=== PATIENT | female | born 1960 | race Caucasian/White ===

== ENCOUNTER 2024-04-15 19:56 | Inpatient (IN) | payer MEDICARE, OTHER, SELFPAY ==
[2024-04-15 19:57] VITALS: BP 176/112; PULSE 120; RESP 20; TEMP 36.6; O2SAT 99; BMI 31.8
--- NOTE | 2024-04-15 20:29 | EKG12_ITS ---
Test Reason : TACHYCARDIA Blood Pressure : */* mmHG Vent. Rate : 155 BPM Atrial Rate : * BPM P-R Int : * ms QRS Dur : 72 ms QT Int : 290 ms P-R-T Axes : * 27 15 degrees QTcB Int : 465 ms Critical Test Result: High HR Atrial fibrillation with rapid ventricular response Abnormal ECG Confirmed by Armando Biggs ([id number]), industrial editor ANIKA GONZALEZ ([id number]) on 04/19/2024 10:39:50 AM Referred By: Janusz Del Rio Confirmed By: Armando Biggs
--- NOTE | 2024-04-15 20:38 | RAD_ITS ---
PROCEDURE: Chest radiographs REASON FOR EXAM: Shortness of breath TECHNIQUE: Frontal and lateral views of the chest. COMPARISON: None. FINDINGS: Borderline cardiomegaly. Mediastinal contours are within normal limits. Small bilateral pleural effusions with adjacent patchy basilar airspace opacities. No sizable pneumothorax. RAD/Chest PA and Lateral IMPRESSION: Imaging findings suggestive of fluid overload as above. Superimposed infection not definitively excluded. Reading Location: [facility]
--- NOTE | 2024-04-15 20:43 | ED.RN ---
no old ekg
[2024-04-15 21:00] VITALS: BP 148/116; PULSE 143; PULSE 151; RESP 22; RESP 23; TEMP 36.5; O2SAT 93; O2SAT 95
[2024-04-15 21:07] LABS: Absolute Lymphocyte Count 2.19 X10^3/uL (0.83-4.51); Absolute Neutrophil Count 5.7 X10^3/uL (2.0-7.7); Basophil# 0.08 X10^3/uL; Basophil% 0.9 % (0-1); Eosinophil# 0.19 X10^3/uL; Eosinophils% 2.2 % (0-5); Hematocrit 45.6 % (37-47); Hemoglobin 14.8 g/dL (12.0-15.0); Lymphocyte # 2.19 X10^3/ul (0.83-4.51); Mean Corp Hgb Conc 32.5 g/dL (32-36); Mean Corpuscular Hgb 30.3 pg (27.0-32.0); Mean Corpuscular Volume 93.4 fL (81-99); Mean Platelet Vol. 12.5 fl (6.2-12.0); Monocyte# 0.62 X10^3/uL; Monocyte% 7.1 % (0-10); NRBC Flagged by Analyzer 0 % (0-5); Neutrophil # 5.67 X10^3/uL (2.7-7.7); Neutrophil % 64.6 % (47-70); Platelet Count 236 K/mm3 (150-450); RBC Distribution Width CV 12.6 % (11.6-14.6); RBC Distribution Width SD 43.6 fl (35.1-43.9); Red Blood Count 4.88 M/mm3 (4.2-5.4); White Blood Count 8.8 K/mm3 (4.4-11.0)
[2024-04-15 21:20] LABS: International Normalized Ratio 1.1; Prothrombin Time (Protime)PT. 14.1 SECONDS (11.7-14.9)
[2024-04-15 21:21] LABS: Partial Thromboplast Time 25.3 Seconds (24.1-36.2)
[2024-04-15] MEDS: Metoprolol Tartrate 5 MG/5 ML Vial IV (21:27)
[2024-04-15] MEDS: 0.9% Normal Saline (1000mL) 1,000 ML 999 ML IV (21:27)
--- NOTE | 2024-04-15 21:29 | EX.ED.DYSGE1 ---
HPI History of Present Illness Chief Complaint: Shortness of Breath Narrative Narrative: Patient is a 64-year-old female with past medical history of colon resection few years ago for multiple polyps in her colon but states that her last recent colonoscopy was clean who presents to the emerged part with a chief complaint of shortness of breath and chest heaviness. Patient states that back in February she felt that she had some upper respiratory infectious type symptoms and thought that things would improve. She stopped that she had the same cold that everybody else had. She states that periodically she had been trying to work out and noted that when she would get on the treadmill and it would monitor her heart rate which show in the 180s the patient and her significant other at bedside thought that the machine was broken. She states that given that things are not improving and she does not have a primary care physician again to she would come to the emergency department to be evaluated. Patient denies recent travel history denies any blood clots. Patient denies any alcohol use or drug use. [facility] Home Medications ?Medication ?Instructions ?Recorded ?Last Taken ?Type benzonatate 100 mg capsule 100 mg PO TID PRN PRN cough 04/15/24 Unknown History doxycycline hyclate 100 mg tablet 100 mg PO BID 04/15/24 04/15/24 History estradiol 1 mg tablet (Estrace) 0.5 mg PO DAILY 04/15/24 04/15/24 History estradiol-norethindrone acet 1 1 tab PO DAILY 04/15/24 04/15/24 History mg-0.5 mg tablet (Activella) Allergy/AdvReac Type Severity Reaction Status Date / Time Penicillins Allergy Mild RASH Verified 04/15/24 19:57 Surgical History History of colon resection Social History Smoking Status: Never smoker ROS ROS ED ROS Narrative Constitutional: Denies fevers, chills, headaches, lightness, dizziness Eyes: Denies change in vision double vision blurry vision Cardiovascular: Complains of chest pressure denies palpitations Respiratory: Complaint shortness of breath Abdomen: Denies abdominal pain nausea vomit diarrhea : Denies any urinary symptoms Neurological: Denies numbness, weakness, tingling Musculoskeletal: Denies back pain Skin: Denies any rashes or lesions EXAM Physical Exam Narrative Exam Narrative: General: Patient was lying in bed rest comfortably did not appear to be in acute distress Head: Atraumatic, normocephalic Eyes: PERRL bilaterally, EOMI bilaterally, no conjunctival injection noted Neck: Soft, supple, trachea midline Cardiovascular: Patient had an irregular irregular rhythm with a tachycardic rate Respiratory: Clear to auscultation bilaterally Abdomen: Soft, nondistended, nontender to palpation Extremities: +5/5 strength noted in the bilateral upper and lower extremities, radial pulses +2/4 in the bilateral extremities, no pedal edema on exam Neurological: Patient following commands knew that she was at [facility] year is 2024 Skin: Warm, dry, intact no rashes or lesions noted Const Vital Signs: 04/15/24 19:57 04/15/24 20:11 04/15/24 20:32 Temperature 97.9 F Temperature Source Temporal Pulse Rate 120 H Respiratory Rate 20 H Respiratory Effort Normal Non-Labored Respiratory Depth Normal Respiratory Pattern Normal Blood Pressure 176/112 H Blood Pressure Mean 133 Pulse Ox 99 Oxygen Delivery Method Room Air Room Air Room Air 04/15/24 21:00 04/15/24 21:00 04/15/24 21:30 Temperature 97.7 F L Temperature Source Oral Pulse Rate 151 H 143 H 139 H Respiratory Rate 22 H 23 H 19 H Respiratory Effort Respiratory Depth Respiratory Pattern Blood Pressure 148/116 H 148/116 H 132/98 H Blood Pressure Mean 126 126 109 Pulse Ox 95 93 96 Oxygen Delivery Method Room Air 04/15/24 23:00 Temperature Temperature Source Pulse Rate 121 H Respiratory Rate 23 H Respiratory Effort Respiratory Depth Respiratory Pattern Blood Pressure 126/99 H Blood Pressure Mean 108 Pulse Ox 94 Oxygen Delivery Method MDM MDM MDM Narrative Medical decision making narrative: Patient is a 64-year-old female who presents to the emergency department the chief complaint of shortness of breath, chest heaviness. On the differential diagnose includes but not limited to ACS, pneumonia, upper respiratory infection secondary viral etiology, atrial fibrillation with rapid ventricular response, hyperthyroidism, lecture light abnormality PE.. Once workup is obtained reviewed she will be reevaluated. Patient will be given 30 cc/kg bolus of IV fluids based on ideal body weight as her BMI is greater than 30. Fluids were ordered at 2029. Patient was given 5 mg IV Lopressor. Patient's heart rate remains elevated therefore should be given Cardizem bolus followed by Cardizem drip. Patient's CBC was largely unremarkable no evidence leukocytosis white blood count normal at 8.8, a hemoglobin is 14.8, plate count normal at 236. Patient INR normal at 1.1, PT of 14.1, D-dimer elevated therefore CT angiography chest was added on. Patient sodium was noted be normal 130, potassium of 4.1, creatinine normal at 0.79. Patient AST and ALT were 32 and 41 respectively. Patient's troponin was noted to be 29 with a delta troponin obtained noted to be 29. Patient is EKG reviewed by myself which showed atrial fibrillation with rapid ventricular response with a rate of 155 bpm. Patient's proBNP elevated 2792. Patient TSH elevated to 4.39, free T41.70 And T3 of 3.8. Patient's urinalysis showed negative nitrites 25 leukocyte esterase 10-25 white cells however the 10-25 squamous epithelial cells with 1+ bacteria likely contaminated this was sent for culture. Patient's chest x-ray reviewed by myself and by radiology showed borderline cardiomegaly finding suggestive of volume overload state. Patient CT angiography of chest was reviewed showed no evidence of filling defect to suggest PE findings most suggestive of mild pulmonary edema with small bilateral pleural effusions. Patient was given 40 mg IV Lasix. Patient's case will be discussed with hospitalist for admission for her new onset A-fib with RVR and shortness of breath, however she likely has been in this since February. After discussion with the patient and she states that since Friday starting doxycycline she has had dark stools. States that she has had 3 dark stools since Friday. Did perform rectal exam sending down to the lab will hold off on any anticoagulation at this point time. Discussed case with hospitalist Dr. Cherry who accept patient for admission. Patient was notified as well as significant other bedside they are agreeable this plan. Will still hold off on starting any anticoagulation until the fecal occult test comes back which is pending. Lab Data Labs: Laboratory Results - last 24 hr 04/15/24 04/15/24 04/15/24 20:13 20:55 21:35 WBC 8.8 RBC 4.88 Hgb 14.8 Hct 45.6 MCV 93.4 MCH 30.3 MCHC 32.5 RDW Std Deviation 43.6 RDW Coeff of [place] 12.6 Plt Count 236 MPV 12.5 H Immature Gran % (Auto) 0.200 Neut % (Auto) 64.6 Lymph % (Auto) 25.0 [place] % (Auto) 7.1 Eos % (Auto) 2.2 Baso % (Auto) 0.9 Absolute Neuts (auto) 5.7 Absolute Lymphs (auto) 2.19 Nucleated RBC % 0 PT 14.1 INR 1.1 APTT 25.3 D-Dimer Quant (PE/DVT) 2.16 H* Sodium 138 Potassium 4.1 Chloride Direct 104 Carbon Dioxide 20.3 L Anion Gap 13 BUN 16 Creatinine 0.79 Estim Creat Clear Calc 69.89 Est GFR (MDRD) Non-Af 82 BUN/Creatinine Ratio 20.3 H Glucose 114 H Lactic Acid 1.6 Calcium 9.1 Total Bilirubin 0.46 AST 32 ALT 41 H Alkaline Phosphatase 59 Troponin T High Sens 29 H Troponin T Hi Sens 2 Hr 29 H Troponin T Hi Sens 2Hr Delta 1 NT pro BNP II 2792 H Total Protein 6.5 Albumin 4.1 Globulin 2.5 Albumin/Globulin Ratio 1.6 TSH 4.390 H Free T4 1.70 H Free T3 pg/dL 3.8 Urine Color Yellow Urine Clarity Sl. Cloudy Urine pH 6.0 Ur Specific [place] 1.025 Urine Protein 100 H Urine Glucose (UA) Normal Urine Ketones 5 H Urine Occult Blood 25 H Urine Nitrite Negative Urine Bilirubin Negative Urine Urobilinogen 1 H Ur Leukocyte Esterase 25 H Urine RBC 0-5 SEEN Urine WBC 10-25 SEEN Ur Squamous Epith Cells 10-25 SEEN Calcium Oxalate Crystal 2+ Urine Bacteria 1+ Hyaline Casts 0-5 SEEN Urine Mucus 0 SEEN Radiography Diagnostic Testing: Clinical Impression(s) from Imaging Studies Chest X-Ray 04/15/24 20:38 IMPRESSION: Imaging findings suggestive of fluid overload as above. Superimposed infection not definitively excluded. Reading Location: [facility] Chest CTA 04/15/24 22:10 IMPRESSION: No evidence of filling defect to suggest pulmonary embolism. Findings most suggestive of mild pulmonary edema with small bilateral pleural effusions as above. One or more dose reduction techniques were used (e.g., Automated exposure control, adjustment of the mA and/or kV according to patient size, use of iterative reconstruction technique). Reading Location: [facility] Discharge Plan Triage Chief Complaint: Shortness of Breath ED Provider: Janusz Del Rio Dx/Rx/DC Orders Clinical Impression: Atrial fibrillation with RVR, Pleural effusion, bilateral, Dyspnea on exertion Prescriptions: No Action estradiol-norethindrone acet [Activella] 1-0.5 mg tablet 1 tab PO DAILY benzonatate 100 mg capsule 100 mg PO TID PRN PRN (Reason: cough) doxycycline hyclate 100 mg tablet 100 mg PO BID estradiol [Estrace] 1 mg tablet 0.5 mg PO DAILY Rx Instructions: off 1 week; repeat cycle Primary Care Provider: Kaykay Stallings NP Referrals: Kaykay Stallings NP, [facility] [Primary Care Provider] - Print Language: Slovenian Disposition Disposition: [facility] Care [facility]
[2024-04-15 21:30] VITALS: BP 132/98; PULSE 139; RESP 19; O2SAT 96
[2024-04-15 21:32] LABS: ALB/GLOB Ratio 1.6 RATIO (0.9-2.4); AST(SGOT) 32 U/L (<=31); Alanine Aminotransfer ALT/SGPT 41 U/L (<=34); Albumin, Serum 4.1 g/dL (3.4-4.8); Alkaline Phosphatase 59 U/L (35-104); Anion Gap 13 (5-15); BUN 16 mg/dL (4-19); BUN/Creat Ratio 20.3 RATIO (10-20); Calcium 9.1 mg/dL (7.6-11.0); Carbon Dioxide 20.3 mmol/L (22.0-29.0); Chloride 104 mmol/L (96-108); Creatinine, Serum 0.79 mg/dL (0.70-1.20); EST Glomerular Filtration Rate 82 (>60); Estimated Creatinine Clearance 69.89 ml/min; Globulin 2.5 g/dL (2.2-4.2); Glucose 114 mg/dL (70-99); Potassium 4.1 mmol/L (3.3-5.1); Protein, Total 6.5 g/dL (5.9-8.4); Sodium Level 138 mmol/L (133-145); Total Bilirubin 0.46 mg/dL (0.00-1.30); Troponin T High Sensitivity 29 ng/L (<=14)
[2024-04-15 21:34] LABS: Lactic Acid 1.6 mmol/L (0.0-2.0)
[2024-04-15 21:48] LABS: Mucous, Urine 0 SEEN /hpf (<or=2+)
[2024-04-15 21:52] LABS: D-Dimer Quantitative (DVT/PE) 2.16 FEU/ug/m (0.27-0.49)
[2024-04-15 21:56] LABS: Color, Urine Yellow (Yellow); Glucose, Dipstick Normal (Normal); Ketone-Dipstick 5 mg/dl (Negative); Leukocyte Esterase-Dipstick 25 /ul (Negative); Nitrite-Dipstick Negative (Negative); Occult Blood-Urine 25 /ul (Negative); Protein-Dipstick 100 mg/dl (Negative); Specific Gravity, Urine 1.025 (1.002-1.030); Urine Bilirubin Dipstick Negative (Negative); Urine Clarity Sl. Cloudy (Clear); Urine Urobilinogen 1 mg/dl (Normal)
[2024-04-15 21:59] LABS: Free T3 3.8 pg/mL (2.18-3.98); TROPONIN VARIANCE 2 HR 1; Troponin T High Sens 2 HR 29 ng/L (<=14)
[2024-04-15 22:05] LABS: Pro- Brain NATRIURETIC PEPTIDE 2792 pg/mL (<=900)
[2024-04-15 22:09] LABS: Bacteria 1+ /hpf (None Seen)
--- NOTE | 2024-04-15 22:10 | CT_ITS ---
PROCEDURE: CTA CHEST W/WO CONTRAST REASON FOR EXAM: new AFib, elevated D-dimer TECHNIQUE: CTA imaging of the chest with intravenous contrast. 3D reconstructions. CONTRAST: 98 cc Isovue 370 COMPARISON: None. FINDINGS: No evidence of filling defect to suggest pulmonary embolism. Cardiomegaly with small pericardial effusion. Right greater than left bilateral small posterior layering pleural effusions with associated partial passive collapse at the bases. Patchy areas of lower zone predominant ground-glass opacity within the lower lobes may represent degree of pulmonary edema. The central airways are patent. Thoracic aorta appears within limits. Incidental note of the left vertebral artery appearing to arise directly off the aortic arch, anatomic variant. At least 4 large hepatic cysts within the visualized partially imaged liver, incidental measuring up to 5 cm. Lower cervical and L1-2 spondylosis/discogenic change CT/CTA Chest W/WO Contrast IMPRESSION: No evidence of filling defect to suggest pulmonary embolism. Findings most suggestive of mild pulmonary edema with small bilateral pleural e ffusions as above. One or more dose reduction techniques were used (e.g., Automated exposure contr ol, adjustment of the mA and/or kV according to patient size, use of iterative reconstruction technique). Reading Location: [id number]
[2024-04-15 22:11] LABS: Calcium Oxalate Crystals Ur 2+ /hpf (<or=2+); Squamous Epithelial Cells - UA 10-25 SEEN /hpf (5-10)
[2024-04-15 22:12] LABS: Hyaline Cast 0-5 SEEN /lpf (0-5)
[2024-04-15 22:13] LABS: Red Blood Cells-Urine 0-5 SEEN /hpf (0-5); White Blood Cells 10-25 SEEN /hpf (0-5)
[2024-04-15] MEDS: Furosemide 40 MG/4 ML Vial IV (22:57)
[2024-04-15 23:00] VITALS: BP 126/99; PULSE 121; RESP 23; O2SAT 94
[2024-04-15] MEDS: dilTIAZem 25 MG/5 ML Vial 20 MG IV BOLUS (23:43)
[2024-04-15 23:45] VITALS: PULSE 120; RESP 25; O2SAT 94
[2024-04-15] MEDS: Diltiazem 125 MG in Dextrose 5%-Water (100mL Bag) 100 ML IV (23:45)
[2024-04-16] VITALS (27 sets, daily range): BP systolic 90–145; BP diastolic 68–106; PULSE 63–99; RESP 16–26; TEMP 36.3–36.7; O2SAT 93–99; BMI 32.8
--- NOTE | 2024-04-16 00:09 | PCM.HP.STD ---
[facility] - General General Date of Admission: 04/16/24 Date of Service: 04/16/24 Chief Complaint: SOB and chest Pressure. HPI Narrative ZENOBIA PALM, is a 64 F with a past medical history of obesity; with BMI of 31.8 this admission, history of colon polyps; s/p partial colon resection, history of menopause; on daily Estrace and estradiol-norethindrone, listed allergy to PCN (rash) and recently diagnosed bronchitis; treated with oral doxycycline and benzonatate prn who presents to [place] [facility] complaining of shortness of breath and chest pressure. Ms. Palm reports her symptoms began approximately 7 weeks prior to admission after she developed a viral URI with continued dyspnea on exertion and easy fatigability that has been unrelenting in spite of taking oygh-dom-wwnmmnj medications. She then went to an urgent care because she recently moved to this area and has not set up a relationship with a new PCP with patient given prescription for oral doxycycline which she has taken for the last 3 days without improvement. She admits to increased life-stress due to a major remodeling of her home with the patient and her both living in their basement in their first floor basically a construction zone. She admits that she has been trying to work out periodically and when she was in the gym she would get on the treadmill and her heart rate would show tachycardia at ~180 bpm - but she thought the machine was broken so she did not seek medical attention at that time. She states she has a constant pressure sensation in her chest that is substernal, nonradiating, moderate and is made worse with activity but has not significantly improved with rest. She denies a history of similar previous episodes and has been very healthy overall throughout her life but she did state that her mother had constant problems with palpitations, but she is not sure if she had atrial fibrillation or other specific cardiac disease. She admits to having to sleep sitting up for the past ~7 weeks due to severe shortness of breath that worsen when lying flat with patient stating she has not rested well for a long time and that she is afraid to go to sleep because she does not think she will wake up. She denies a personal history of CHF, atrial fibrillation or other known cardiac disease. She additionally denies associated fever, chills, nausea, vomiting, diarrhea, constipation, abdominal pain, dysuria, hematuria, lower extremity swelling, headache or rash. In the ER she was noted to have a sharply elevated BNP of 2,792 pg/mL present on admission with corresponding radiographic evidence of pulmonary edema consistent with New-onset AE CHF; of uncertain type complicated by New-onset Atrial Fibrillation; with Rapid Ventricular Response of ~150 bpm present on admission with associated Chest Pressure and Dyspnea on Exertion compounded by UA positive for Acute Cystitis; without hematuria along with an elevated D-dimer of 2.16 present on admission with CTA of chest with IV contrast done in ER negative for PE but positive for mild pulmonary edema with small bilateral pleural effusions. She was then admitted to the PCU for ongoing care for a stay that is expected to extend beyond 2 midnights. COUNTS INCLUDE 234 BEDS AT THE [facility] Home Medications ?Medication ?Instructions ?Recorded ?Last Taken ?Type benzonatate 100 mg capsule 100 mg PO TID PRN PRN cough 04/15/24 Unknown History doxycycline hyclate 100 mg tablet 100 mg PO BID 04/15/24 04/15/24 History estradiol 1 mg tablet (Estrace) 0.5 mg PO DAILY 04/15/24 04/15/24 History estradiol-norethindrone acet 1 1 tab PO DAILY 04/15/24 04/15/24 History mg-0.5 mg tablet (Activella) Allergy/AdvReac Type Severity Reaction Status Date / Time Penicillins Allergy Mild RASH Verified 04/15/24 19:57 Surgical History History of colon resection Social History Smoking Status: Never smoker ROS ROS Narrative Review of Systems: Constitutional: Patient denies fever or chills. Eyes: Patient denies changes in vision or discharge from eyes. ENT: Patient denies runny nose, sore throat or ear pain. Resp: Patient admits to shortness of breath but she denies cough. CV: Patient admits to diffuse chest pressure but she denies palpitations. GI: Patient denies abdominal pain, nausea, vomiting or diarrhea. : Patient denies dysuria or hematuria. MSK: Patient denies arthralgias or myalgias. Skin: Patient denies rash, abscess, wounds or jaundice. Psych: Patient denies symptoms of uncontrolled depression or anxiety. Neuro: Patient denies headache, paresthesias or focal neurologic deficits. Allergy: Patient denies lip swelling, tongue swelling or urticaria. Hematology: Patient denies easy bleeding or easy bruisability. Endocrinology: Patient denies polyuria, polydipsia or polyphagia. 14 point review of systems otherwise negative except for positives noted above in HPI. Vital Signs Vital Signs Vital Signs: 04/15/24 19:57 04/15/24 20:11 04/15/24 20:32 Temperature 97.9 F Temperature Source Temporal Pulse Rate 120 H Respiratory Rate 20 H Respiratory Effort Normal Non-Labored Respiratory Depth Normal Respiratory Pattern Normal Blood Pressure 176/112 H Blood Pressure Mean 133 Blood Pressure Source Blood Pressure Position Blood Pressure Location Pulse Ox 99 Oxygen Delivery Method Room Air Room Air Room Air 04/15/24 21:00 04/15/24 21:00 04/15/24 21:30 Temperature 97.7 F L Temperature Source Oral Pulse Rate 151 H 143 H 139 H Respiratory Rate 22 H 23 H 19 H Respiratory Effort Respiratory Depth Respiratory Pattern Blood Pressure 148/116 H 148/116 H 132/98 H Blood Pressure Mean 126 126 109 Blood Pressure Source Blood Pressure Position Blood Pressure Location Pulse Ox 95 93 96 Oxygen Delivery Method Room Air 04/15/24 23:00 04/15/24 23:45 Temperature Temperature Source Pulse Rate 121 H 120 H Respiratory Rate 23 H 25 H Respiratory Effort Respiratory Depth Respiratory Pattern Blood Pressure 126/99 H Blood Pressure Mean 108 Blood Pressure Source Monitor Blood Pressure Position Semi-Fowlers Blood Pressure Location Left Arm Pulse Ox 94 94 Oxygen Delivery Method Room Air Weight Weight: 179 lb 7.3 oz Body Mass Index (BMI) 31.8 Physical Exam Const alert and oriented x3 Constitutional Narrative: Mild distress noted. General Appearance: cooperative HEENT normocephalic, head/scalp atraumatic, hearing grossly normal bilaterally and moist oral mucous membranes Eyes PERRL and EOMs intact bilaterally Neck no lymphadenopathy and supple Resp Resp Narrative: Diminished breath sounds throughout with bibasilar rales. Auscultation: rales Cardio Cardio Narrative: Irregularly irregular at ~120 bpm. GI normal to inspection, nondistended, normoactive bowel sounds, soft to palpation, non-tender and non-distended GI Narrative: Obese. Extremity normal to inspection, full ROM and no clubbing, cyanosis or edema Skin Skin Narrative: Patient has no evidence of rash, abscess, wounds or jaundice. Neuro oriented x3, CN's II-XII intact bilaterally, moves all extremities and no focal motor deficits Sensorium / Orientation: awake, alert, oriented to person, oriented to place and oriented to time Speech: speech normal Psych affect normal Results Medical Records Data Attestation: I reviewed the patient's medical records Lab / Micro Data Attestation: I reviewed the patient's lab results. 04/16/24 02:30 04/16/24 02:30 Labs: Laboratory Results - last 24 hr 04/15/24 20:13: WBC 8.8, RBC 4.88, Hgb 14.8, Hct 45.6, MCV 93.4, MCH 30.3, MCHC 32.5, RDW Std Deviation 43.6, RDW Coeff of Laurel 12.6, Plt Count 236, MPV 12.5 H, Immature Gran % (Auto) 0.200, Neut % (Auto) 64.6, Lymph % (Auto) 25.0, Sherman % (Auto) 7.1, Eos % (Auto) 2.2, Baso % (Auto) 0.9, Absolute Neuts (auto) 5.7, Absolute Lymphs (auto) 2.19, Nucleated RBC % 0, PT 14.1, INR 1.1, APTT 25.3, D-Dimer Quant (PE/DVT) 2.16 H*, Sodium 138, Potassium 4.1, Chloride Direct 104, Carbon Dioxide 20.3 L, Anion Gap 13, BUN 16, Creatinine 0.79, Estim Creat Clear Calc 69.89, Est GFR (MDRD) Non-Af 82, BUN/Creatinine Ratio 20.3 H, Glucose 114 H, Calcium 9.1, Total Bilirubin 0.46, AST 32, ALT 41 H, Alkaline Phosphatase 59, Troponin T High Sens 29 H, Troponin T Hi Sens 2 Hr 29 H, Troponin T Hi Sens 2Hr Delta 1, NT pro BNP II 2792 H, Total Protein 6.5, Albumin 4.1, Globulin 2.5, Albumin/Globulin Ratio 1.6, TSH 4.390 H, Free T4 1.70 H, Free T3 pg/dL 3.8 04/15/24 20:55: Lactic Acid 1.6 04/15/24 21:35: Urine Color Yellow, Urine Clarity Sl. Cloudy, Urine pH 6.0, Ur Specific Broussard 1.025, Urine Protein 100 H, Urine Glucose (UA) Normal, Urine Ketones 5 H, Urine Occult Blood 25 H, Urine Nitrite Negative, Urine Bilirubin Negative, Urine Urobilinogen 1 H, Ur Leukocyte Esterase 25 H, Urine RBC 0-5 SEEN, Urine WBC 10-25 SEEN, Ur Squamous Epith Cells 10-25 SEEN, Calcium Oxalate Crystal 2+, Urine Bacteria 1+, Hyaline Casts 0-5 SEEN, Urine Mucus 0 SEEN Micro: Microbiology 04/15/24 20:55 Mucosa - Nose SARS-CoV-2, Influenza & RSV (PCR) - Final Imaging Radiology Impression Chest X-Ray 04/15/24 20:38 IMPRESSION: Imaging findings suggestive of fluid overload as above. Superimposed infection not definitively excluded. Reading Location: [facility] Chest CTA 04/15/24 22:10 IMPRESSION: No evidence of filling defect to suggest pulmonary embolism. Findings most suggestive of mild pulmonary edema with small bilateral pleural effusions as above. One or more dose reduction techniques were used (e.g., Automated exposure control, adjustment of the mA and/or kV according to patient size, use of iterative reconstruction technique). Reading Location: [id number] Assessment & Plan Assessment/Plan (1) CHF exacerbation: QUALIFIERS: Heart failure type: unspecified Qualified Code(s): I50.9 - Heart failure, unspecified (2) Atrial fibrillation with RVR: (3) Chest pressure: (4) Acute respiratory insufficiency: (5) Acute cystitis without hematuria: (6) Obesity (BMI 30.0-34.9): (7) D-dimer, elevated: (8) Hormone replacement therapy (postmenopausal): PLAN: Plan 1. New-onset AE CHF; of uncertain type evidenced by elevated BNP of 2,792 pg/mL with corresponding radiographic evidence of pulmonary edema - Admit to PCU. Give furosemide IV BID plus supplemental KCl and magnesium. Check echocardiogram to evaluate LVEF. Finally, we will consult [facility] see this patient on rounds in the a.m. for further recommendations with help appreciated in advance. 2. New-onset Atrial Fibrillation; with Rapid Ventricular Response complicating #1 - Continue IV diltiazem begun in the ER and titrate to keep heart rate ~100 bpm. Start full-dose Lovenox for CVA prophylaxis. Transition to oral calcium channel minor when appropriate. 3. Chest Pressure and Dyspnea on Exertion attributable to #1 & #2 - Serialize troponin. Start ECASA plus statin and check Lipid Profile. 4. Acute Cystitis; without hematuria adding to the medical complexity of #1 - #3 - Start Levofloxacin IV and await culture and sensitivity data. Give acetaminophen as needed for [id number] (level 1-5/10) pain or fever. Give morphine IV as needed for severe (level 6-10/10) pain. 5. Obesity; with BMI of 31.8 this admission adding to the burden of disease outlined from #1 - #4 - Weight loss will be recommended. TSH slightly elevated with high FT4 of 1.7 ng/dL and normal FT3 of 3.8 pg/mL noted on admission. This complicates her case and may hamper recovery. 6. Elevated D-dimer of 2.16 present on admission with CTA of chest with IV contrast negative for PE and no lower extremity edema or pain noted on admission - Noted. We will check bilateral LE Doppler to evaluate for DVT to make certain no suspicion is admittedly low. Hold postmenopausal HRT as risks outweigh any potential benefits at this time. 7. Recently diagnosed bronchitis; treated with oral doxycycline - Noted with patient suspected to have heart failure rather than bronchitis. 8. History of colon polyps; s/p partial colon resection - Noted with last colonoscopy reportedly negative for recurrence. 9. Listed allergy to PCN (rash) - Noted. We will avoid this class of agents. 10. DVT prophylaxis - Patient on full-dose Lovenox for #2. Total time: Approximately (but not less than) 75 minutes.
--- NOTE | 2024-04-16 01:47 | VDLE_ITS ---
Reason For Study Reason For Study: Elevated D-Dimer RIGHT LEFT GSV is normal. GSV is normal. CFV is compressible, spontaneous, phasic, competent CFV is compressible, spontaneous, phasic, competent, and demonstrates normal augmentation. and demonstrates normal augmentation. FV is compressible, spontaneous, phasic, competent FV is compressible, spontaneous, phasic, competent and demonstrates normal augmentation. and demonstrates normal augmentation. POP V is compressible, spontaneous, phasic, competent POP V is compressible, spontaneous, phasic, competent and demonstrates normal augmentation. and demonstrates normal augmentation. T/P Trunk is compressible. T/P Trunk is compressible. PTV is compressible. PTV is compressible. RT PerV is compressible. LT PerV is compressible. Rt SoleusV is DILATED and NON COMPRESSIBLE consistent with acute DVT. Procedure This is a venous duplex using B-mode, color flow and spectral Doppler. Exam performed portable in patient room. A preliminary report was called and/or faxed to [facility]. VL/Venous Duplex US - Laith Extrem Interpretation Summary Acute deep vein thrombosis is noted in the right soleus vein. Deep veins of the left lower extremity are patent and compressible segmentally. There is no evidence of left lower extremity deep vein thrombosis. The bilateral great saphenous veins appear pemberton nt and compressible segmentally. Ordering Physician: Wallace Gutierrez Referring Physician: Kaykay Stallings Performed By: Sayda Franklin, ISAELCS, RVT
[2024-04-16 02:45] LABS: Absolute Lymphocyte Count 1.82 X10^3/uL (0.83-4.51); Absolute Neutrophil Count 6.2 X10^3/uL (2.0-7.7); Basophil# 0.07 X10^3/uL; Basophil% 0.8 % (0-1); Eosinophil# 0.07 X10^3/uL; Eosinophils% 0.8 % (0-5); Hematocrit 45.4 % (37-47); Hemoglobin 14.9 g/dL (12.0-15.0); Lymphocyte # 1.82 X10^3/ul (0.83-4.51); Mean Corp Hgb Conc 32.8 g/dL (32-36); Mean Corpuscular Volume 94.6 fL (81-99); Mean Platelet Vol. 11.8 fl (6.2-12.0); Monocyte# 0.45 X10^3/uL; Monocyte% 5.2 % (0-10); NRBC Flagged by Analyzer 0 % (0-5); Neutrophil # 6.23 X10^3/uL (2.7-7.7); Neutrophil % 71.7 % (47-70); Platelet Count 218 K/mm3 (150-450); RBC Distribution Width CV 12.6 % (11.6-14.6); RBC Distribution Width SD 43.7 fl (35.1-43.9); White Blood Count 8.7 K/mm3 (4.4-11.0)
[2024-04-16] MEDS: Enoxaparin 80 MG/0.8 ML Syringe SC (02:45)
[2024-04-16] MEDS: Atorvastatin Calcium 20 MG Tablet PO ×2 (02:45→21:25)
[2024-04-16] MEDS: Aspirin E.C. 81 MG Tablet PO (02:45)
[2024-04-16] MEDS: levoFLOXacin IV 750 MG/150 ML BAG 100 MG IV ×2 (02:46→21:26)
[2024-04-16 03:25] LABS: Magnesium 1.9 mg/dL (1.5-2.2)
[2024-04-16 03:27] LABS: ALB/GLOB Ratio 1.5 RATIO (0.9-2.4); AST(SGOT) 37 U/L (<=31); Alanine Aminotransfer ALT/SGPT 45 U/L (<=34); Alkaline Phosphatase 60 U/L (35-104); Anion Gap 14 (5-15); BUN 14 mg/dL (4-19); BUN/Creat Ratio 18.6 RATIO (10-20); Carbon Dioxide 21.8 mmol/L (22.0-29.0); Chloride 103 mmol/L (96-108); Cholesterol 147 mg/dL (<=200); Creatinine, Serum 0.74 mg/dL (0.70-1.20); EST Glomerular Filtration Rate 89 (>60); Estimated Creatinine Clearance 71.02 ml/min; Globulin 2.6 g/dL (2.2-4.2); Glucose 110 mg/dL (70-99); High Density Lipoprotein 44 mg/dL; Low Density Lipoprotein Calc. 88 mg/dL; Potassium 3.9 mmol/L (3.3-5.1); Protein, Total 6.6 g/dL (5.9-8.4); Sodium Level 139 mmol/L (133-145); Total Bilirubin 0.63 mg/dL (0.00-1.30); Triglycerides 74 mg/dL; Very Low Density Lipoprotein 15 mg/dL (5-40); cholesterol:hdl ratio screen 3.33
[2024-04-16 03:43] LABS: Phosphorus 3.6 mg/dL (2.7-4.5); Pro- Brain NATRIURETIC PEPTIDE 2309 pg/mL (<=900)
[2024-04-16] MEDS: Acetaminophen 325 MG Tablet 650 MG PO (07:43)
[2024-04-16] MEDS: Potassium Chloride Oral Tablet 20 MEQ PO (07:46)
[2024-04-16] MEDS: Ascorbic Acid 500 MG Tablet 1000 MG PO ×2 (07:46→17:11)
--- NOTE | 2024-04-16 08:36 | PCM.PN.HOSP ---
Reason for Visit Reason for Visit: Shortness of breath/palpitations Subjective Subjective Patient states she is feeling much better today. Breathing is much better. Chest pain has resolved. Heart rates are improved. We discussed A-fib and patient voiced understanding. Objective Data Objective Data Vital Signs: Vital Signs Temp Pulse Resp BP Pulse Ox O2 Del Method 97.6 F L 97 26 H 121/80 H 93 Room Air 04/16/24 01:38 04/16/24 07:52 04/16/24 01:38 04/16/24 07:52 04/16/24 01:38 04/16/24 08:18 Oxygen Delivery Method Room Air Weight: 84 kg Body Mass Index (BMI) 32.8 Intake & Output: Intake and Output for Last 24 Hours 04/14/24 04/15/24 04/16/24 23:59 23:59 23:59 Intake Total 1000 / 1000 421.59 / 421.59 Output Total 800 / 800 Balance 1000 / 1000 -378.41 / -378.41 Lab / Micro Data 04/16/24 02:30 04/16/24 02:30 Labs: Laboratory Results - last 24 hr 04/15/24 20:13: WBC 8.8, RBC 4.88, Hgb 14.8, Hct 45.6, MCV 93.4, MCH 30.3, MCHC 32.5, RDW Std Deviation 43.6, RDW Coeff of Laurel 12.6, Plt Count 236, MPV 12.5 H, Immature Gran % (Auto) 0.200, Neut % (Auto) 64.6, Lymph % (Auto) 25.0, Caroline % (Auto) 7.1, Eos % (Auto) 2.2, Baso % (Auto) 0.9, Absolute Neuts (auto) 5.7, Absolute Lymphs (auto) 2.19, Nucleated RBC % 0, PT 14.1, INR 1.1, APTT 25.3, D-Dimer Quant (PE/DVT) 2.16 H*, Sodium 138, Potassium 4.1, Chloride Direct 104, Carbon Dioxide 20.3 L, Anion Gap 13, BUN 16, Creatinine 0.79, Estim Creat Clear Calc 69.89, Est GFR (MDRD) Non-Af 82, BUN/Creatinine Ratio 20.3 H, Glucose 114 H, Calcium 9.1, Total Bilirubin 0.46, AST 32, ALT 41 H, Alkaline Phosphatase 59, Troponin T High Sens 29 H, Troponin T Hi Sens 2 Hr 29 H, Troponin T Hi Sens 2Hr Delta 1, NT pro BNP II 2792 H, Total Protein 6.5, Albumin 4.1, Globulin 2.5, Albumin/Globulin Ratio 1.6, TSH 4.390 H, Free T4 1.70 H, Free T3 pg/dL 3.8 04/15/24 20:55: Lactic Acid 1.6 04/15/24 21:35: Urine Color Yellow, Urine Clarity Sl. Cloudy, Urine pH 6.0, Ur Specific Buford 1.025, Urine Protein 100 H, Urine Glucose (UA) Normal, Urine Ketones 5 H, Urine Occult Blood 25 H, Urine Nitrite Negative, Urine Bilirubin Negative, Urine Urobilinogen 1 H, Ur Leukocyte Esterase 25 H, Urine RBC 0-5 SEEN, Urine WBC 10-25 SEEN, Ur Squamous Epith Cells 10-25 SEEN, Calcium Oxalate Crystal 2+, Urine Bacteria 1+, Hyaline Casts 0-5 SEEN, Urine Mucus 0 SEEN 04/16/24 02:30: WBC 8.7, RBC 4.80, Hgb 14.9, Hct 45.4, MCV 94.6, MCH 31.0, MCHC 32.8, RDW Std Deviation 43.7, RDW Coeff of Laurel 12.6, Plt Count 218, MPV 11.8, Immature Gran % (Auto) 0.500, Neut % (Auto) 71.7 H, Lymph % (Auto) 21.0, Caroline % (Auto) 5.2, Eos % (Auto) 0.8, Baso % (Auto) 0.8, Absolute Neuts (auto) 6.2, Absolute Lymphs (auto) 1.82, Nucleated RBC % 0, Sodium 139, Potassium 3.9, Chloride Direct 103, Carbon Dioxide 21.8 L, Anion Gap 14, BUN 14, Creatinine 0.74, Estim Creat Clear Calc 71.02, Est GFR (MDRD) Non-Af 89, BUN/Creatinine Ratio 18.6, Glucose 110 H, Calcium 9.0, Phosphorus 3.6, Magnesium 1.9, Total Bilirubin 0.63, AST 37 H, ALT 45 H, Alkaline Phosphatase 60, B-Natriuretic Peptide Cancelled, NT pro BNP II 2309 H, Total Protein 6.6, Albumin 4.0, Globulin 2.6, Albumin/Globulin Ratio 1.5, Triglycerides 74, Cholesterol 147, VLDL Cholesterol 15, HDL Cholesterol 44, Cholesterol/HDL Ratio 3.33 Micro: Microbiology 04/15/24 23:55 Stool Stool Occult Blood ([facility]) - Final 04/15/24 20:55 Mucosa - Nose SARS-CoV-2, Influenza & RSV (PCR) - Final Radiography Diagnostic Testing: Radiology Impression Chest X-Ray 04/15/24 20:38 IMPRESSION: Imaging findings suggestive of fluid overload as above. Superimposed infection not definitively excluded. Reading Location: [facility] Chest CTA 04/15/24 22:10 IMPRESSION: No evidence of filling defect to suggest pulmonary embolism. Findings most suggestive of mild pulmonary edema with small bilateral pleural effusions as above. One or more dose reduction techniques were used (e.g., Automated exposure control, adjustment of the mA and/or kV according to patient size, use of iterative reconstruction technique). Reading Location: [facility] Physical Exam Const alert, oriented x3, no apparent distress, healthy appearing and well nourished; Negative for average body habitus Constitutional Narrative: Obese, upper middle-aged, white female, sitting up in bed, appears comfortable, watching television, nontoxic-appearing HEENT head/scalp atraumatic and moist oral mucous membranes HEENT Narrative: Mallampati 3, no thrush Resp normal respiratory effort, no retractions and no use of accessory muscles Resp Narrative: Scattered crackles at bases bilaterally Auscultation: crackles; Negative for rhonchi or wheezes Cardio regular rate, S1 normal heart sound, S2 normal heart sound, no murmurs, no rub, no gallops and no clicks Cardio Narrative: Irregular irregular rhythm GI normal to inspection, nondistended, normoactive bowel sounds, soft to palpation and non-tender Extremity no clubbing, cyanosis or edema Extremity Narrative: Pedal pulses are 2+ Neuro oriented x3, moves all extremities and no focal motor deficits Speech: speech normal Psych affect normal Psych Narrative: Very pleasant, interacts appropriately Assessment & Plan Assessment/Plan (1) Dyspnea on exertion: (2) CHF exacerbation: QUALIFIERS: Heart failure type: unspecified Qualified Code(s): I50.9 - Heart failure, unspecified (3) Atrial fibrillation with RVR: (4) DVT (deep venous thrombosis): PLAN: Plan New onset A-fib with RVR -Rate is now controlled -Cardizem discontinued -Start metoprolol 50 mg p.o. twice daily -Discontinue Lovenox and starts Eliquis -Echocardiogram is pending -TSH was slightly elevated but likely euthyroid sick Lower extremity DVT -On anticoagulation for A-fib but will increase dose to 10 mg p.o. twice daily x 7 days and then transition back to 5 mg p.o. twice daily Acute exacerbation of CHF -Type unknown -Likely related to A-fib with RVR -Responding to diuretics and clinically much improved -Continue to monitor Chest pain -Likely related to the above Abnormal UA -Continue antibiotics as ordered -Follow cultures Elevated D-dimer -CT of the chest was negative -Positive DVT in lower extremity below the knee Obesity -Recommend weight loss -Complicates treatment, prognosis, outcomes Use of estrogen replacement therapy -Will continue for now as patient is now going to be anticoagulated DVT prophylaxis -Full anticoagulation as noted above CODE STATUS -full code Charges/Coding Visit Charges Inpatient E&M: 84849 Subs Hosp L2
[2024-04-16] MEDS: Metoprolol Tartrate 50 MG Tablet PO ×2 (08:59→21:26)
[2024-04-16] MEDS: Furosemide 40 MG/4 ML Vial IV ×2 (10:03→17:11)
[2024-04-16] MEDS: Lactobacillis Acidophilus 1 CAP PO ×4 (10:03→21:23)
[2024-04-16] MEDS: 0.9% Saline Lock 10 ML Syringe IV ×3 (10:04→17:12)
[2024-04-16] MEDS: Magnesium Chloride 64 MG Delay Rel.Tablet 128 MG PO ×2 (10:04→21:25)
[2024-04-16] MEDS: Cholecalciferol (Vit D3) 125 MCG CAPSULE (5,000 UNITS) PO (10:05)
[2024-04-16] MEDS: APIXABAN 5 MG TABLET PO (10:11)
--- NOTE | 2024-04-16 12:10 | CASEMGMT ---
LEXIE PARRA Assessment: Face to Face with pt for initial transition planning/care coordination assessment. RN FIDEL introduced self and role at [facility], pt voices understanding and consents to assessment. Pt is A&O x4 and answers all questions appropriately at this time. Pt sitting up in bed in no distress. Care providers, pharmacy, and demographics verified/updated. Strata: 1 Admitting Dx: AE CHF, A-FIB with RVR, Chest pressure, SOB PCP: Haylie Specialists: [facility] Preferred Pharmacy: [facility] Insurance: [facility], MMO Prescription Benefit: yes LNOK: , Ken Living Arrangements: Pt lives with in a 3 level home with 3 steps to enter. ADLs:Pt states I at baseline with ADLs and IADLs. Transportation: Pt drives self and denies concerns with transportation. DME: Denies HHC/SNF: Denies Hx of. Pt states no concerns with going home at time of dc. Pt states no further concerns/needs. CM to follow. Advised pt to ask CM if any further question/concerns/needs arise, voices understanding. Pt Goal: Home Plan: Home with family support. Follow for safe DC. Mis OWEN CM
[2024-04-16] MEDS: Ondansetron 4 MG/2 ML Vial IV (13:04)
--- NOTE | 2024-04-16 14:12 | CHAPLAIN ---
Type of Pastoral Visit _x__ Initial Visit ___ Follow-up Visit ___ On-call Visit ___ General Patient Visit ___ Spiritual Assessment ___ Family Conference ___ Bereavement ___ Rapid Response ___ Code Blue ___ Other (describe below) Pastoral Care Referral From _x__ Patient ___ Family ___ Nurse ___ Physician ___ Second Mate ___ Wire Brusher ___ Other (describe below) Sacrament/Intervention _x__ Active listening ___ Anointing ___ Latter Day ___ Bereavement ___ Communion ___ Erika exploration ___ ___ Life review ___ Prayer ___ Reconciliation ___ Sacrament of Sick ___ Supportive presence ___ Wedding ___ Other (describe below) Pastoral Comments patient is pleasant and states that all is much better now than when I came in; pt denies any further needs; pt declines help so the visit was short and ended
--- NOTE | 2024-04-16 15:42 | CASEMGMT ---
LEXIE PARRA noted pt started on Eliquis, provided pt with Eliquis savings card. Anticipate pt will be DC'd over the weekend.
--- NOTE | 2024-04-16 18:30 | ECHOD_ITS ---
Reason For Study Reason For Study: AFIB Procedure This was a 2D Doppler, Color Flow transthoracic echocardiogram. Exam performed portable in patient room. Left Ventricle Normal LV size. The estimated ejection fraction is 55 %. Unable to assess diastolic dysfunction. No regional wall motion abnormalities noted. Right Ventricle Normal RV size. Normal systolic function. Atria There is mild biatrial dilatation. No doppler evidence for ASD. Mitral Valve There is no mitral valve stenosis. Trivial mitral valve insufficiency. Tricuspid Valve There is no tricuspid stenosis. Mild eccentric tricuspid valve insufficiency. Pulmonary artery systolic pressure is 30 mmHg. Aortic Valve Trisinus/trileaflet aortic valve. There is no aortic stenosis. No aortic valve insufficiency. Pulmonic Valve There is no pulmonic valvular stenosis. Trivial pulmonic valve insufficiency. Great Vessels Normal sized aortic root. Pericardium/Pleural Small (<1.0 cm) pericardial effusion. MMode/2D Measurements & Calculations LVIDd: 4.0 cm IVSd: 1.4 cm LVOT diam: 2.0 cm LVIDs: 3.4 cm LVPWd: 1.2 cm LVOT area: 3.1 cm2 FS: 13.5 % Ao root diam: 2.7 cm LAV(MOD-bp): 62.7 ml LVAd ap4: 22.8 cm2 LAV(MOD-bp) Indexed: 33.5 ml/m2 LVLd ap4: 7.7 cm LAV(MOD-sp2): 70.2 ml EDV(MOD-sp4): 56.8 ml LAV(MOD-sp4): 57.0 ml EDV(sp4-el): 57.2 ml LVAs ap4: 16.5 cm2 LVLs ap4: 7.2 cm ESV(MOD-sp4): 32.9 ml ESV(sp4-el): 32.2 ml EF(MOD-sp4): 42.1 % EF(sp4-el): 43.8 % SV(MOD-sp4): 23.9 ml SV(sp4-el): 25.0 ml LA A4 area: 20.5 cm2 SI(MOD-sp4): 12.8 ml/m2 LA dimension(2D): 4.3 cm RA A4 area: 17.2 cm2 Doppler Measurements & Calculations MV E max lis: 103.1 cm/sec Ao V2 max: 87.2 cm/sec LV V1 max: 73.9 cm/sec Ao max P.0 mmHg LV V1 max P.2 mmHg Ao V2 mean: 65.4 cm/sec LV V1 mean P.2 mmHg Ao mean P.9 mmHg LV V1 mean: 50.3 cm/sec Ao V2 VTI: 15.0 cm LV V1 VTI: 13.1 cm AV (velocity ratio): 0.87 JENNIFER(I,D): 2.7 cm2 JENNIFER(V,D): 2.6 cm2 SV(LVOT): 40.8 ml PA V2 max: 56.6 cm/sec PI end-d lis: 112.7 cm/sec PA V2 mean: 45.1 cm/sec TR max lis: 222.2 cm/sec TR max P.7 mmHg ECHO/Echo Complete Interpretation Summary The estimated ejection fraction is 55 %. There is mild biatrial dilatation. Trivial mitral valve insufficiency. Small (<1.0 cm) pericardial effusion. Ordering Physician: Zahra Trivedi Referring Physician: Janusz Del Rio Performed By: Minerva Mendoza RCS
[2024-04-16] MEDS: APIXABAN 5 MG TABLET 10 MG PO (21:23)
[2024-04-17 03:00] VITALS: BP 119/93; PULSE 89; RESP 14; TEMP 36.6; O2SAT 99
[2024-04-17 06:25] LABS: Absolute Lymphocyte Count 2.27 X10^3/uL (0.83-4.51); Absolute Neutrophil Count 4.2 X10^3/uL (2.0-7.7); Basophil# 0.07 X10^3/uL; Basophil% 0.9 % (0-1); Eosinophil# 0.25 X10^3/uL; Eosinophils% 3.4 % (0-5); Hematocrit 41.5 % (37-47); Hemoglobin 13.7 g/dL (12.0-15.0); Lymphocyte # 2.27 X10^3/ul (0.83-4.51); Lymphocyte % 30.4 % (19-41); Mean Corpuscular Hgb 31.1 pg (27.0-32.0); Mean Corpuscular Volume 94.1 fL (81-99); Mean Platelet Vol. 11.8 fl (6.2-12.0); Monocyte# 0.62 X10^3/uL; Monocyte% 8.3 % (0-10); NRBC Flagged by Analyzer 0 % (0-5); Neutrophil # 4.23 X10^3/uL (2.7-7.7); Neutrophil % 56.7 % (47-70); Platelet Count 198 K/mm3 (150-450); RBC Distribution Width CV 12.6 % (11.6-14.6); RBC Distribution Width SD 43.5 fl (35.1-43.9); Red Blood Count 4.41 M/mm3 (4.2-5.4); White Blood Count 7.5 K/mm3 (4.4-11.0)
[2024-04-17 07:05] LABS: Anion Gap 10 (5-15); BUN 16 mg/dL (4-19); BUN/Creat Ratio 17.5 RATIO (10-20); Calcium 9.1 mg/dL (7.6-11.0); Chloride 104 mmol/L (96-108); Creatinine, Serum 0.92 mg/dL (0.70-1.20); EST Glomerular Filtration Rate 69 (>60); Estimated Creatinine Clearance 61.76 ml/min; Glucose 83 mg/dL (70-99); Magnesium 2.2 mg/dL (1.5-2.2); Phosphorus 3.6 mg/dL (2.7-4.5); Potassium 4.5 mmol/L (3.3-5.1); Sodium Level 140 mmol/L (133-145)
[2024-04-17 08:52] VITALS: O2SAT 96
[2024-04-17] MEDS: Ascorbic Acid 500 MG Tablet 1000 MG PO (08:58)
[2024-04-17] MEDS: Magnesium Chloride 64 MG Delay Rel.Tablet 128 MG PO (08:58)
[2024-04-17] MEDS: Aspirin 81 MG TAB.CHEW PO (08:58)
[2024-04-17] MEDS: Lactobacillis Acidophilus 1 CAP PO (08:58)
[2024-04-17] MEDS: Cholecalciferol (Vit D3) 125 MCG CAPSULE (5,000 UNITS) PO (08:59)
[2024-04-17] MEDS: Furosemide 40 MG/4 ML Vial IV (08:59)
[2024-04-17] MEDS: APIXABAN 5 MG TABLET 10 MG PO (08:59)
[2024-04-17 09:00] VITALS: BP 113/87; PULSE 89; RESP 18; TEMP 36.7; O2SAT 95
[2024-04-17 09:02] VITALS: BP 113/87; PULSE 89
[2024-04-17] MEDS: 0.9% Saline Lock 10 ML Syringe IV (09:02)
[2024-04-17] MEDS: Metoprolol Tartrate 50 MG Tablet PO (09:02)
--- NOTE | 2024-04-17 11:23 | DS.PCM_ITS ---
Providers Date of Admission: 04/16/24 Date of Discharge: 04/17/24 Primary Care Physician: VAIBHAV Dukes Reason For Visit: AE CHF, A-FIB; WITH RVR, CHEST PRESSURE, SOB Diagnosis Discharge Diagnosis (1) Dyspnea on exertion: Status: Acute Code(s): R06.09 - Other forms of dyspnea (2) CHF exacerbation: Status: Chronic Code(s): I50.9 - Heart failure, unspecified Qualifiers: Heart failure type: unspecified Qualified Code(s): I50.9 - Heart failure, unspecified (3) Atrial fibrillation with RVR: Status: Acute Code(s): I48.91 - Unspecified atrial fibrillation (4) DVT (deep venous thrombosis): Status: Acute Code(s): I82.409 - Acute embolism and thrombosis of unspecified deep veins of unspecified lower extremity Medications at Discharge Home Medications benzonatate 100 mg capsule 100 mg PO TID PRN PRN cough 04/15/24 doxycycline hyclate 100 mg tablet 100 mg PO BID 04/15/24 estradiol 1 mg tablet (Estrace) 0.5 mg PO DAILY 04/15/24 estradiol-norethindrone acet 1 mg-0.5 mg tablet (Activella) 1 tab PO DAILY 04/15/24 apixaban 5 mg (74 tabs) tablets in a dose pack ([employer] DVT-PE Treat 30D Start) See Rx Instructions PO .COMPLEX #74 tabs 04/17/24 metoprolol tartrate 50 mg tablet 50 mg PO BID #60 tabs 04/17/24 Hospital Course Procedures 2-D Echocardiogram, EKG and - (CTA chest/lower extremity Dopplers/chest x-ray) Summary of Care Provided Minutes Spent on Discharge: 39 Hospital Course: Mrs. Palm is a 64-year-old white female who presents emergency department at [facility] on 04/16/2024 with a chief complaint of shortness of breath and chest pressure. Patient had not had anything like this previously she is on daily estrogen supplementation at home and had been recently diagnosed with upper respiratory tract infection and placed on doxycycline. Her symptoms started about 7 weeks prior to admission at the time she developed her initial viral URI but she had continued dyspnea on exertion and easy fatigability. She went to an urgent care locally as she had recently moved to the [facility] and has not yet established with a primary care physician. At that time, she was prescribed doxycycline and she had taken 3 days prior to presentation. She did indicate her life stressors have been higher and was concerned that they may be contributing. She has been working out and been noting that her heart rates have been high intermittently while she has been on the treadmill, as high as 170-180. The chest symptoms she was experiencing were nonradiating, substernal and moderate that were made worse with activity but not improved with rest either. She does have a family history of atrial fibrillation in her sister and her mother. She also complained of some lower extremity edema. Vital signs on presentation showed a temperature of 97.9, heart rate 120, respiratory rate 20, blood pressure was 176/112 pulse ox was 99% on room air. CBC on presentation was unremarkable. Coags were normal. D-dimer is elevated at 2.16. Chemistry panel was unremarkable. Lactic acid was normal. LFTs were slightly off with a mildly elevated ALT at 41. Troponins were 29 x 2 and BNP was elevated at 2792. EKG was done and showed A-fib with RVR. Chest x-ray was unremarkable for any acute findings. Given the elevated D-dimer a CTA of her chest was performed and was unremarkable. She was admitted to the medical floor placed on a Cardizem drip and subcu Lovenox. Echocardiogram was ordered. TSH was within normal limits. She was placed on some Lasix which very quickly improved her respiratory status and decreased her lower extremity edema. I highly suspect her heart failure was related to her A-fib with RVR. Echocardiogram was performed and showed an EF of 55% with no regional wall motion abnormalities, right ventricular systolic pressure of 30 mmHg with mild eccentric tricuspid valve insufficiency and no other valvular abnormalities noted and a small less than 1 cm pericardial effusion. We did not discharge her on Lasix. She was transitioned off Cardizem onto metoprolol 50 mg p.o. twice daily and remained in A-fib but rate was controlled. A lower extremity duplex was ordered and she did have a right lower extremity below the knee DVT. This could be managed with serial imaging however given the fact that she needed anticoagulation anyway, we went ahead and treated her with 10 mg p.o. twice daily x 7 days then transition to 5 mg twice daily. I have asked that she follow-up with cardiology in the next month and we gave her resources to establish with a primary care physician locally. She is on estrogen replacement therapy which predisposes her to DVTs however being anticoagulated we did discuss this and she will continue for now. Discharge diagnoses: New onset A-fib with RVR Upper respiratory tract infection Right soleal DVT Acute exacerbation of CHF and early to new onset A-fib with RVR Chest pain Abnormal UA -Culture negative Obesity Chronic estrogen replacement therapy Physical Exam Const alert, oriented x3, no apparent distress, healthy appearing and well nourished; Negative for average body habitus Constitutional Narrative: Obese, upper middle-aged, white female, sitting up in bed, appears comfortable, watching television, nontoxic-appearing General Appearance: cooperative, comfortable, well kempt and well developed Exam Limitations: no limitations Nutritional Appearance: obese HEENT normocephalic, head/scalp atraumatic, hearing grossly normal bilaterally and moist oral mucous membranes HEENT Narrative: Mallampati 2, no thrush Eyes EOMs intact bilaterally Eyes Narrative: No scleral icterus Neck supple Neck Narrative: Trachea midline Resp normal respiratory effort, no retractions, no use of accessory muscles and clear to auscultation bilaterally Auscultation: Negative for crackles, rales, rhonchi or wheezes Cardio regular rate, S1 normal heart sound, S2 normal heart sound, no murmurs, no rub, no gallops and no clicks Cardio Narrative: Irregular irregular rhythm with good rate control GI normal to inspection, nondistended, normoactive bowel sounds, soft to palpation and non-tender GI Narrative: Obese. Extremity no clubbing, cyanosis or edema Extremity Narrative: Pedal pulses are 2+ Skin skin turgor normal and no jaundice Neuro oriented x3, moves all extremities and no focal motor deficits Speech: speech normal Psych affect normal Psych Narrative: Very pleasant, interacts appropriately Weight / BMI Weight Weight: 84 kg Body Mass Index (BMI) 32.8 ABG / Lab / Microbiology Data 04/17/24 05:47 04/17/24 05:47 Laboratory: Laboratory Results - last 24 hr 04/17/24 05:47: WBC 7.5, RBC 4.41, Hgb 13.7, Hct 41.5, MCV 94.1, MCH 31.1, MCHC 33.0, RDW Std Deviation 43.5, RDW Coeff of [place] 12.6, Plt Count 198, MPV 11.8, Immature Gran % (Auto) 0.300, Neut % (Auto) 56.7, Lymph % (Auto) 30.4, [place] % (Auto) 8.3, Eos % (Auto) 3.4, Baso % (Auto) 0.9, Absolute Neuts (auto) 4.2, Absolute Lymphs (auto) 2.27, Nucleated RBC % 0, Sodium 140, Potassium 4.5, Chloride Direct 104, Carbon Dioxide 26.0, Anion Gap 10, BUN 16, Creatinine 0.92, Estim Creat Clear Calc 61.76, Est GFR (MDRD) Non-Af 69, BUN/Creatinine Ratio 17.5, Glucose 83, Calcium 9.1, Phosphorus 3.6, Magnesium 2.2 Microbiology: Microbiology 04/15/24 21:35 Urine, Clean Catch Urine Culture - Preliminary Culture exhibits no growth. 04/15/24 23:55 Stool Stool Occult Blood (CHANCE) - Final 04/15/24 20:55 Mucosa - Nose SARS-CoV-2, Influenza & RSV (PCR) - Final Radiography Diagnostic Testing: Radiology Impression Echocardiogram 04/16/24 18:30 Interpretation Summary The estimated ejection fraction is 55 %. There is mild biatrial dilatation. Trivial mitral valve insufficiency. Small (<1.0 cm) pericardial effusion. Ordering Physician: Zahra Trivedi Referring Physician: Janusz Del Rio Performed By: Minerva Mendoza RCS D/C Instructions Discharge Diet: Low fat / Low cholesterol Discharge Activity: Return to Normal Activity Return to work on: 04/19/24 May resume sexual activity in: No Restrictions DC O2, CPAP, BIPAP Needs Home O2 Discharge instructions: No Meaningful Use Info Meaningful Use Meaningful Use Diagnoses (Choose all that apply): None applicable Ischemic Stroke Statin Dosing Therapy Reference: STATIN DOSE THERAPY REFERENCE: * Patients > 75 years receive moderate or high dose statin therapy. * Patients 75 years or YOUNGER should receive HIGH intensity statin dose unless contraindicated. You will be required to document reason for non-treatment if statin daily dose does not meet guidelines. HIGH DOSE STATIN THERAPY DAILY Atorvastatin > than or = to 40 mg Rosuvastatin > than or = to 20 mg Amlodipine + Atorvastatin > than or = to 2.5/40 mg Ezetimibe + Simvastatin 10/80 mg Simvastatin 80mg Discharge Plan Admission Admit Date/Time: 04/16/24 00:56 Primary Reason for Your Visit: Shortness of breath/palpitations Attending Provider: Zahra Trivedi Primary Care Provider: Kaykay Stallings NP Consulting Providers: Wallace Gutierrez Instructions Additional Instructions / Restrictions: 1. No specific restrictions. You may notice that your heart rate started to elevate with exercise due to the beta-minor and this could cause some fatigue as well 2. Please call on Friday to obtain a follow-up appointment to establish with a primary care physician and with cardiology. Discharge Orders/Prescriptions Prescriptions: New metoprolol tartrate 50 mg Tablet 50 mg PO BID Qty: 60 1RF Eliquis DVT-PE Treat 30D Start 5 mg (74 tabs) tablets,dose pack See Rx Instructions .ROUTE .COMPLEX Qty: 74 0RF Rx Instructions: orally per package directions Continued estradiol-norethindrone acet [Activella] 1-0.5 mg tablet 1 tab PO DAILY benzonatate 100 mg capsule 100 mg PO TID PRN PRN (Reason: cough) doxycycline hyclate 100 mg tablet 100 mg PO BID estradiol [Estrace] 1 mg tablet 0.5 mg PO DAILY Rx Instructions: off 1 week; repeat cycle Referrals / Follow Up: Niyah Lowe MD [Med Staff - Active Staff] - Within 1 Month (Call to establish new patient visit) Armando Biggs MD [Med Staff - Active Staff] - Within 1 Month (Hospital follow- up for new diagnosis of atrial fibrillation) Kaykay Stallings NP, TELEVISION SPECIALIST-C [Primary Care Provider] - Disposition Disposition (needs filled in before D/C Order can be placed): Home, Self Care Charges/Coding Visit Charges Inpatient E&M: 91474 Disch Hosp >30min
[2024-04-17 14:34] VITALS: BP 101/73; PULSE 93; RESP 18; O2SAT 92
== END 2024-04-17 15:20 | disposition home or self-care (01) | DRG 309 ==
LOC: ED 04-16 00:11 → PCU 04-16 01:48
PROVIDERS: Admitting Provider Internal Medicine; Emergency Provider Emergency Medicine; PCP Nurse Practitioner Family; Referring Provider Emergency Medicine; Visit Provider Internal Medicine
DX: I48.91 Unspecified atrial fibrillation (principal); N30.00 Acute cystitis without hematuria; I82.461 Acute embolism and thrombosis of right calf muscular vein; I50.9 Heart failure, unspecified; Z68.31 Body mass index [BMI] 31.0-31.9, adult; J06.9 Acute upper respiratory infection, unspecified; E66.9 Obesity, unspecified
CPT/HCPCS: 36415; 71046; 71275; 80048; 80053; 80061; 81001; 82274; 83605; 83735; 83880; 84100; 84439; 84443; 84481; 84484; 85025; 85379; 85610; 85730; 87040; 87086; 87631; 93005; 93306; 93970; 97802; 99284; Q9967; A4216; J1940; J2405

== ENCOUNTER 2024-06-01 10:46 | Day surgery (SDC) | payer MEDICARE, OTHER, SELFPAY ==
[2024-06-01 08:54] VITALS: BMI 28.7
--- NOTE | 2024-06-01 12:33 | CARDIOVERS ---
Cardioversion Cardioversion: Patient 64-year-old white female brought to the [facility] holding area for direct-current cardioversion. The patient was n.p.o. EKG done on admit showed continued atrial fibrillation with a controlled ventricular sponsor 90 bpm. Patient has a history of mild biatrial enlargement LV ejection fraction of 55%. Patient has been on uninterrupted Eliquis for greater than 6 weeks. After informed consent EKG was attached and defibrillator pads were placed anterior posterior. Patient received 40 mg of dipper Van administered by Dr. Beto Chavez. After appropriate anesthesia was documented the patient underwent a single 200 J synchronized shock. This converted the patient to sinus bradycardia at 58 bpm that slowly increased to 60-70 bpm. The patient awoke was neurologically intact. The patient will be discharged to home and follow-up in 1 week with an EKG in the [facility] office. She will then be seen in 6 weeks with one of our advanced practitioners. Procedures Coronary Therapeutic CF Procedures [id number]: [id number] Cardioversion electric ext
--- NOTE | 2024-06-01 12:37 | PCM.OP.PRO2 ---
Procedures Pulmonary Pulmonary Procedures /Diagnostic Testin Con Sedation Non-invasive Procedural Procedure Information Date of Procedure: 06/01/24 Description of procedure: CONSCIOUS SEDATION REPORT DATE OF SERVICE: June 01, 2024 BRIEF HISTORY OF PRESENT ILLNESS: The patient is a 64-year-old female who presented to [facility] to undergo an elective outpatient cardioversion due to underlying atrial fibrillation. The patient denied any prior anesthetic complications. She is a lifelong non-smoker. She has never been diagnosed with obstructive sleep apnea. Her last surface echocardiogram demonstrated an ejection fraction of approximately 55%. She is systemically anticoagulated on Eliquis. PHYSICAL EXAMINATION: VITAL SIGNS: Reviewed and were acceptable. GENERAL: The patient is a female, in no apparent distress, speaking in full sentences. HEENT: Normocephalic, atraumatic. Mucous membranes are moist and pink. Good mouth opening noted. Trachea is midline. CHEST: S1, S2 irregularly irregular. No murmurs, rubs or gallops were noted. LUNGS: Clear to auscultation bilaterally without appreciable wheezes, rales or rhonchi. ABDOMEN: Soft, nontender, nondistended. Positive bowel sounds. EXTREMITIES: There is no clubbing, cyanosis or edema. ASA Class: II DESCRIPTION OF PROCEDURE: After confirmation of informed consent, the patient's anesthesia plan was reviewed in detail. Propofol was chosen. Risks and benefits were reviewed and the patient agreed to proceed. At 1220, the patient was given 40 mg of propofol. The patient achieved an appropriate level of sedation and was given a 200 joule synchronized cardioversion by Dr. Biggs at the bedside. This was successful in achieving normal sinus rhythm. The patient was monitored until 1234, at which time she reached her baseline mental status and function. The patient tolerated the procedure well. COMPLICATIONS: None ESTIMATED BLOOD LOSS: None RECOMMENDATIONS: Okay to recover in usual fashion.
== END 2024-06-01 13:20 | disposition home or self-care (01) ==
PROVIDERS: PCP Internal Medicine; Referring Provider Internal Medicine Cardiovascular Disease; Visit Provider Internal Medicine Cardiovascular Disease
DX: I48.91 Unspecified atrial fibrillation (principal); I50.31 Acute diastolic (congestive) heart failure; E66.3 Overweight; Z79.01 Long term (current) use of anticoagulants; Z79.899 Other long term (current) drug therapy; Z86.718 Personal history of other venous thrombosis and embolism; Z68.29 Body mass index [BMI] 29.0-29.9, adult
CPT/HCPCS: 92960; 93005

== ENCOUNTER 2024-07-27 10:32 | Day surgery (SDC) | payer MEDICARE, OTHER, SELFPAY ==
[2024-07-20 16:53] LABS: ALB/GLOB Ratio 1.3 RATIO (0.9-2.4); AST(SGOT) 20 U/L (<=31); Alanine Aminotransfer ALT/SGPT 16 U/L (<=34); Albumin, Serum 3.9 g/dL (3.4-4.8); Alkaline Phosphatase 65 U/L (35-104); Anion Gap 12 (5-15); BUN 13 mg/dL (4-19); Calcium,Total 9.3 mg/dL (7.6-11.0); Carbon Dioxide 24.4 mmol/L (21.0-32.0); Chloride 104 mmol/L (98-108); Creatinine, Serum 0.92 mg/dL (0.70-1.20); EST Glomerular Filtration Rate 69 (>60); Globulin 2.9 g/dL (2.2-4.2); Glucose 97 mg/dL (70-99); Potassium 4.4 mmol/L (3.3-5.1); Protein, Total 6.8 g/dL (5.9-8.4); Sodium Level 140 mmol/L (133-145); Total Bilirubin 0.46 mg/dL (0.00-1.30)
[2024-07-26 08:36] VITALS: BMI 30.5
--- NOTE | 2024-07-27 12:14 | PRO.PCM_ITS ---
Procedures Pulmonary Pulmonary Procedures /Diagnostic Testin Con Sedation Non-invasive Procedural Procedure Information Date of Procedure: 07/27/24 Procedure findings: CONSCIOUS SEDATION REPORT DATE OF SERVICE: July 27, 2024 BRIEF HISTORY OF PRESENT ILLNESS: The patient is a 64-year-old female who presented to [facility] to undergo an elective outpatient cardioversion due to underlying atrial fibrillation. The patient did undergo a prior cardioversion in May 2024, during which time, the patient required 40 mg of propofol to achieve an appropriate level of sedation. The patient denied any prior anesthetic complications. She is a lifelong non-smoker. She has never been diagnosed with obstructive sleep apnea. Her last surface echocardiogram demonstrated an ejection fraction of approximately 55%. She is systemically anticoagulated on Eliquis. PHYSICAL EXAMINATION: VITAL SIGNS: Reviewed and were acceptable. GENERAL: The patient is a female, in no apparent distress, speaking in full sentences. HEENT: Normocephalic, atraumatic. Mucous membranes are moist and pink. Good mouth opening noted. Trachea is midline. CHEST: S1, S2 irregularly irregular. No murmurs, rubs or gallops were noted. LUNGS: Clear to auscultation bilaterally without appreciable wheezes, rales or rhonchi. ABDOMEN: Soft, nontender, nondistended. Positive bowel sounds. EXTREMITIES: There is no clubbing, cyanosis or edema. ASA Class: II DESCRIPTION OF PROCEDURE: After confirmation of informed consent, the patient's anesthesia plan was reviewed in detail. Propofol was chosen. Risks and benefits were reviewed and the patient agreed to proceed. At 1150, the patient was given 40 mg of propofol. The patient achieved an appropriate level of sedation and was given a 200 joule synchronized cardioversion by Dr. Aragon at the bedside. This was successful in achieving normal sinus rhythm. The patient was monitored until 1205, at which time she reached her baseline mental status and function. The patient tolerated the procedure well. COMPLICATIONS: None ESTIMATED BLOOD LOSS: None RECOMMENDATIONS: Okay to recover in usual fashion.
--- NOTE | 2024-07-27 12:57 | CARDIOVERS ---
Cardioversion Cardioversion: Patient presents in atrial fibrillation for a cardioversion. She has been on uninterrupted anticoagulation. Sedation provided by MICU attending Dr. Chavez. Successful DCCV of AF to sinus bradycardia with a singl 200J shock. Recommendations 1. Stop metoprolol 2. Continue amiodarone 200mg daily 3. Continue uninterrupted anticoagulation 4. Outpatient AF ablation to be scheduled.
== END 2024-07-27 13:00 | disposition home or self-care (01) ==
PROVIDERS: PCP Internal Medicine; Referring Provider Internal Medicine; Visit Provider Internal Medicine
DX: I48.91 Unspecified atrial fibrillation (principal); I50.31 Acute diastolic (congestive) heart failure; Z79.01 Long term (current) use of anticoagulants; Z79.899 Other long term (current) drug therapy; Z86.718 Personal history of other venous thrombosis and embolism
CPT/HCPCS: 36415; 80053; 84443; 92960; 93005

== ENCOUNTER → 2024-11-23 | Outpatient (CLI) | payer MEDICARE, OTHER, SELFPAY ==
--- NOTE | 2024-11-23 08:37 | US_ITS ---
PROCEDURE: LIVER 11/23/2024 REASON FOR EXAM: NODULES ON CT TECHNIQUE: Procedure Code: USLI Modality: US Procedure: LIVER COMPARISON: CTA chest, 04/15/2024. FINDINGS: Liver: There are multiple hepatic cysts identified as follows: -Lateral segment, left hepatic lobe, 4.7 x 3.4 x 2.7 cm. -anterior segment, right hepatic lobe, 5.2 x 4.8 x 4.4 cm. -posterior segment, right hepatic lobe, 3.4 x 3.0 x 2.6 cm. The liver parenchyma is normal in echogenicity. The liver measures 13.9 cm in vertical dimension in the midclavicular line. There is normal hepatopetal flow demonstrated in the MPV. Gallbladder: There is a 1.5 cm in diameter gallstone. There are noted findings consistent with adenomyomatosis of the gallbladder. Common bile duct: 4 mm. Pancreas: Visualized portions are sonographically unremarkable. Other: The right kidney measures 11.7 x 5.2 x 3.7 cm, and contains an interpolar cortical cyst measuring 1.2 cm in diameter. No right upper quadrant ascites. US/Liver IMPRESSION: 1. Hepatic and renal cysts as described. 2. Cholelithiasis and findings consistent with adenomyomatosis of the gallblad jaclyn. Reading Location: [id number]
== END | disposition home or self-care (01) ==
LOC: US 08:34
PROVIDERS: PCP Internal Medicine; Referring Provider Internal Medicine; Visit Provider Internal Medicine
DX: R93.89 Abnormal findings on diagnostic imaging of other specified body structures (principal)
CPT/HCPCS: 76705